=== PATIENT | male | born 1960 | race Caucasian/White ===

== ENCOUNTER → 2018-11-23 | Outpatient (CLI) | payer OTHER ==
--- NOTE | 2018-11-23 17:56 | PN ---
PROGRESS NOTE This is a 58-year-old male patient with an established diagnosis of obstructive sleep apnea. The patient originally presented to me back in 2016 with loud snoring, chronic fatigue, tiredness and sleepiness. He was suspected to have obstructive sleep apnea. He underwent a home sleep study. The patient was diagnosed having severe LEONARDA with an AHI of 42. At that time the patient was advised to come into the sleep center to undergo a CPAP titration. Note that he also had a deviated nasal septum and was referred to ENT and he was seen by Dr. Monahan and he was given nasal septum correction. The surgery itself was not successful. Over the years the patient continued to mouth- breathe. He has gained around 15 pounds and today he is coming in for further advice, knowing that his sleep apnea symptoms have gotten worse. He is snoring. He quits breathing. He is very somnolent and sleepy during the day. He feels fatigued at all times. He is driving a truck, as the patient distributes lumber. He has not fallen asleep while driving his truck, nor has he been involved in a motor vehicle accident. REVIEW OF SYSTEMS: Positive for weight gain. No angina. No palpitations. No heartburn. No change in mental status. No history of any motor vehicle accidents because of feeling drowsy or sleepy. He is still having issues with nose breathing and he is a mouth breather. PHYSICAL EXAMINATION: BP is 137/88, pulse 104, respirations 18, temperature 98.4, saturation 96% on room air. Neck size is 20.5 inches, [place] score 12. BMI is 39.4. Weight is 275. GENERAL APPEARANCE: Calm, comfortable. Head is atraumatic, normocephalic. NECK: Supple. No JVD. No goiter or neck masses. Mallampati class IV. There is no nasal septal deviation. LUNGS: Clear to auscultation. Heart sounds are regular rate and rhythm. Normal S1, S2. No S3, S4. No murmurs. ABDOMEN: Soft, nontender. No organomegaly. EXTREMITIES: No edema. No cyanosis or clubbing. NEUROLOGIC: Alert and oriented x3. No focal neurological deficits. IMPRESSION: 1. Severe symptomatic obstructive sleep apnea with an apnea/hypopnea index of 42. The patient is currently having increased daytime sleepiness. 2. Obesity with interval weight gain. Current BMI is up to 39.4. 3. Nasal septal deviation, corrected surgically. 4. Hypertension. PLAN: Will arrange a CPAP titration for this patient. The patient needs to lose weight. The patient needs to come back to the sleep center to undergo a CPAP titration, and appropriate treatment will be offered. He will likely end up having a full-face mask. I will see him back following the titration to discuss treatment response. MMKEL / IJN: [id number] /
== END | disposition home or self-care (01) ==
LOC: SLEEP 16:28
PROVIDERS: ATTEND Internal Medicine Critical Care Medicine
DX: G47.33 Obstructive sleep apnea (adult) (pediatric) (principal); E66.9 Obesity, unspecified; I10 Essential (primary) hypertension; Z68.39 Body mass index [BMI] 39.0-39.9, adult; Z98.890 Other specified postprocedural states

== ENCOUNTER → 2019-03-01 | Outpatient (CLI) | payer BC ==
--- NOTE | 2019-03-01 17:53 | PN ---
PROGRESS NOTE 58-year-old male patient diagnosed having obstructive sleep apnea. The patient originally presented to me back in 2016 with classical manifestations. He was diagnosed having severe LEONARDA. The patient underwent a nasal septum correction. Surgery itself was not successful. The patient has continued to have mouth breathing. He gained more weight and he came in with similar symptoms. A home study was done and the patient was confirmed to have persistently severe LEONARDA with an AHI of 42.7. Based on that, the patient was given APAP and today he is coming in for a compliancy check. On today's evaluation, the patient feels great. He is responding to the APAP very nicely. He is on a minimum pressure of 5, maximum pressure of 20. He has lost about 20 pounds since his last evaluation. He used to weigh 275 and currently he is down to 255. Based on the compliance data, his AHI while on treatment is down to 0.8. He has been averaging 6.4 hours of APAP use per night. His average pressure is at 10.9, and his leak is 13 L/minute. His APAP use for more than 4 hours is 28/30. He is using a DreamWear full face mask, large size, which I do not think is the right size for him. After examining his mask very carefully, I switched to a small size dream wear full face mask which gave the patient a much better fit. Otherwise, he has no specific complaints. He is improving. He is committed to treatment. He is able to tolerate the treatment well without any major difficulties. His [place] score currently is at 7. REVIEW OF SYSTEMS: Fourteen-point review of system was done and positive findings are mentioned above in the history of present illness. No major hypersomnia or sleepiness during the day. His condition is improved. No nocturnal palpitations, chest pain, shortness of breath. No nocturnal heartburn. No significant nightmares or dreams. No anxiety. No panic. No claustrophobia. He is able to tolerate treatment without any major difficulties. No aerophagia. No pressure sensation or any soreness in his face. PHYSICAL EXAMINATION: VITAL SIGNS: BP is 125/70, pulse is 93, respirations 16, pulse ox is 96% on room air. Temperature 98.6. Weight is 255, and [place] score is a 7. GENERAL APPEARANCE: Calm, comfortable in no acute distress. Head is atraumatic, normocephalic. NECK: Supple and there is no JVD. No goiter or neck masses. Mallampati class IV. LUNGS: With diminished breath sounds bilaterally otherwise clear. HEART: Sounds regular rate and rhythm. Normal S1/S2. No murmurs. ABDOMEN: Soft, nontender. No organomegaly. EXTREMITIES: No edema. No cyanosis or clubbing. NEUROLOGICALLY: The patient is alert x3. No focal neurological deficits. PSYCHIATRIC: Negative for anxiety or depression. IMPRESSION: 1. Severe symptomatic obstructive sleep apnea AHI of 42. The patient is undergoing successful APAP treatment. 2. Hypersomnia, improved. 3. Obesity with interval weight loss. In order of 20 pounds. 4. History of nasal septal deviation. Corrected surgically. 5. Hypertension currently inactive, stable and well controlled. PLAN: 1. Continue APAP at the same setting, minimum of 5, maximum of 20. 2. Switch this patient to a medium-sized DreamWear full face mask. 3. Encourage further weight loss. 4. Monitor clinical response and continue with the same treatment. His treatment is successful for now. He meets insurance guidelines and standards. 5. He will see me back in a year's time in follow up, earlier if needed. MMODL / IJN: [id number] /
== END ==
LOC: SLEEP 14:19
PROVIDERS: ATTEND Internal Medicine Critical Care Medicine
DX: G47.33 Obstructive sleep apnea (adult) (pediatric) (principal); E66.9 Obesity, unspecified; J34.2 Deviated nasal septum; I10 Essential (primary) hypertension; Z99.89 Dependence on other enabling machines and devices

== ENCOUNTER → 2021-03-19 | Outpatient (CLI) | payer BC ==
--- NOTE | 2021-03-19 18:16 | PN ---
PROGRESS NOTE A 61-year-old male patient coming in for an annual check regarding his obstructive sleep apnea. His last evaluation was in October of 2018. The patient is known to have severe LEONARDA with an AHI of 42, and currently is on CPAP therapy at an APAP mode at a pressure minimum of 5 and a maximum pressure of 20. On today's evaluation, the patient's complaint has been occasional nighttime palpitations. He tells me that his heart goes fast and he wakes up sweaty. I checked the compliancy of his machine. He is compliant with his CPAP. He is wearing it every night and his CPAP use for the past 30 days has been 29/30. He has been averaging 4.4 hours of CPAP use per night and his average pressure delivered by the machine is around 11.5 with a leak of 24 L/minute and his AHI while on treatment is down to 0.6. No recent weight gain. His BP is under good control. Nevertheless, his heart is completely irregular and I suspect an underlying atrial fibrillation rhythm. No way to confirm as I do not have any 12-lead EKG or rhythm strips that can be done here at the sleep center. No syncope. He has palpitation. No angina. No syncope. REVIEW OF SYSTEMS: Fourteen-point review of system was done and positive findings are mentioned in history of present illness. PHYSICAL EXAMINATION: VITAL SIGNS: BP is 130/89, pulse 64, respirations 18, temp 97.6, saturation 99% on room air. Height is 5 feet 10 inches, weight is 256, BMI 36.2. [place] Score is 9. GENERAL APPEARANCE: Calm comfortable. HEAD: Atraumatic, normocephalic. NECK: Supple, there is no JVD. No goiter or neck masses. Mallampati class 4. LUNGS: Diminished, otherwise clear. HEART: Heart sounds are irregular. Positive S1, S2. No S3, S4. No murmurs. ABDOMEN: Soft, nontender, no organomegaly. EXTREMITIES: No edema. No cyanosis or clubbing. NEUROLOGIC: Awake and alert. There is no focal neurological deficit. IMPRESSION: 1. Severe obstructive sleep apnea with an AHI of 42, currently on APAP. Treatment is successful, needs to improve his compliancy. 2. Irregular cardiac rhythm, most likely consistent with atrial fibrillation. This needs to be confirmed by a 12-lead EKG. 3. Obesity with a BMI of 36.2. 4. History of hypertension, currently on lisinopril/hydrochlorothiazide with adequate control. PLAN: I contacted Dr. Denis Gonzalez to inform them of the irregular pulse. Will need further investigation including a 12-lead EKG and possibly an echocardiogram at a later stage. He may be as well in atrial fibrillation and this needs to be confirmed. Continue CPAP therapy at the same level of pressure. I offered him a new mask which is a dream wear full face mask medium size under the nose. No need for any pressure adjustments. Encourage weight loss. Optimize sleep hygiene measures. Avoid caffeinated beverages. For now, avoid alcohol. See me back in a year's time. MMODL / IJN: [id number] /
== END ==
LOC: SLEEP 15:36
PROVIDERS: ATTEND Internal Medicine Critical Care Medicine
DX: G47.33 Obstructive sleep apnea (adult) (pediatric) (principal); E66.9 Obesity, unspecified; I10 Essential (primary) hypertension; Z68.36 Body mass index [BMI] 36.0-36.9, adult